=== PATIENT | female | born 1990 | race Caucasian/White ===

== ENCOUNTER 2017-11-21 12:04 | Emergency (ER) | payer MEDICAID, OTHER ==
--- NOTE | 2017-11-21 13:17 | EDPHY ---
H & P Time Seen by Provider: 11/21/17 12:12 HPI/ROS: CHIEF COMPLAINT: Carbon monoxide exposure HISTORY OF PRESENT ILLNESS: 26-year-old female presents to the emergency department after carbon monoxide exposure at work. The patient was feeling dizzy and developing headache. Other coworkers were experiencing similar symptoms. Since leaving her place of employment, she is feeling a bit better. She has no pain in her chest. She is a nonsmoker. She is not . Denies abdominal pain. No associated trauma. REVIEW OF SYSTEMS: Constitutional: No fever, no chills. Eyes: No double or blurry vision. ENT: No sore throat. Respiratory: No cough, no shortness of breath. Cardiac: No chest pain. Gastrointestinal: No abdominal pain, vomiting or diarrhea. Genitourinary: No dysuria. Musculoskeletal: No neck or back pain. Skin: No rashes. Neurological: headache. Past Medical/Surgical History: Negative Social History: Single Smoking Status: Never smoked Physical Exam: General Appearance: Alert, no distress. Mentating normally and answering questions appropriately. Eyes: Pupils equal and round. Extraocular motions are all intact. ENT: Mouth: Mucous membranes moist. Respiratory: No wheezing, rhonchi, or rales, lungs are clear to auscultation. Cardiovascular: Regular rate and rhythm. Gastrointestinal: Abdomen is soft and nontender, no masses, no rebound or guarding, bowel sounds normal. Neurological: Alert and oriented x 3, cranial nerves II through XII grossly intact Skin: Warm and dry, no rashes. Musculoskeletal: Nontender to palpate along the cervical, thoracic or lumbar spine. Neck is supple. Extremities: Full range of motion and no peripheral edema. Psychiatric: Patient is oriented X 3, there is no agitation. Constitutional: Initial Vital Signs Temperature (C) 36.6 C 11/21/17 12:07 Heart Rate 82 11/21/17 12:07 Respiratory Rate 17 11/21/17 12:07 Blood Pressure 103/86 H 11/21/17 12:07 O2 Sat (%) 97 11/21/17 12:07 O2 Delivery Mode Room Air Allergies/Adverse Reactions: No Known Allergies Allergy (Verified 11/21/17 12:06) Home Medications: Medication Instructions Recorded NK [No Known Home Meds] 11/21/17 Medical Decision Making ED Course/Re-evaluation: 26-year-old female presents to the emergency department after possible carbon monoxide exposure. Patient had CO level of 1.3. She is a nonsmoker. She was treated with high- flow oxygen upon arrival in the emergency department and had complete resolution of her symptoms. She is comfortable being discharged home. Differential Diagnosis: Including but not limited to carbon monoxide exposure, electrolyte abnormality, smoke inhalation Departure - Departure Disposition: Home, Routine, Self-Care Clinical Impression: Carbon monoxide exposure Condition: Good Instructions: Carbon Monoxide Poisoning (ED) Additional Instructions: Your carbon monoxide level was normal. Return to the emergency department if you have any concerns. 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
[2017-11-21 13:39] VITALS: BP 118/82
== END 2017-11-21 13:37 | disposition home or self-care (01) ==
DX: T58.91XA Toxic effect of carbon monoxide from unspecified source, accidental (unintentional), initial encounter (principal)